=== PATIENT | male | born 1970 | race Caucasian/White ===

== ENCOUNTER → 2024-01-30 09:19 | Outpatient (REF) | payer OTHER, SELFPAY ==
--- NOTE | 2024-01-30 11:54 | CARDSERVDEF ---
Echocardiogram with Definity completed after protocol screening completed. Allergies verified.
Patent IV site: __new site 20 P LH 1st attempt___
IV site flushed with 0.9% NaCl pre and post administration.
Diluted bolus method utilized to enhance visualization of ventricular kilgore.
Total volume given: ___3.0_ mL
Patient tolerated all procedures well without complications.
== END ==
LOC: RCS 09:19
PROVIDERS: ATTENDING PHYSICIAN Internal Medicine; FAMILY PHYSICIAN Family Medicine
DX: I47.10 Supraventricular tachycardia, unspecified (principal); I10 Essential (primary) hypertension
CPT/HCPCS: 93306; Q9957

== ENCOUNTER → 2024-08-04 17:44 | Outpatient (REF) | payer OTHER, SELFPAY | LOC: RAD 17:44 | PROVIDERS: ATTENDING PHYSICIAN Nurse Practitioner Family | DX: J06.9 Acute upper respiratory infection, unspecified (principal) | CPT/HCPCS: 71046 ==

== ENCOUNTER → 2024-11-06 19:32 | Outpatient (REF) | payer OTHER, SELFPAY | LOC: MRI 3T 19:32 | PROVIDERS: ATTENDING PHYSICIAN Family Medicine | DX: M54.41 Lumbago with sciatica, right side (principal) | CPT/HCPCS: 72148 ==

== ENCOUNTER → 2025-04-20 15:12 | Outpatient (REF) | payer OTHER, SELFPAY | LOC: MRI 3T 15:12 | PROVIDERS: ATTENDING PHYSICIAN Otolaryngology; FAMILY PHYSICIAN Family Medicine | DX: H91.92 Unspecified hearing loss, left ear (principal) | CPT/HCPCS: 70553; A9575 ==